=== PATIENT | female | born 1940 | race Caucasian/White ===

== ENCOUNTER 2016-11-15 19:49 | Inpatient (IN) | payer MEDICARE ==
[~2016-11-15] VITALS: Ht 157.4 cm; Wt 48.1 kg
--- NOTE | ~2016-11-15 | PR ---
[place], [place] PROGRESS NOTE [id number] UNIT #: [id number] ROOM: 311 DOCTOR: Brenden MONTANO,SELINA BIRTHDATE: [birth year] DOS: 11/23/2016 SUBJECTIVE: The patient seen and spoke with the staff. Per staff, the patient is doing good. No visual problems or issues, but still has periods of anxiety. The patient was pleasant, cooperative. She was sitting in the day area. She said that she was really feeling very anxious and feels that she will not feel safe going home like that. I spoke with her about BuSpar. She said that her grandson takes BuSpar and apparently that helps him and she is willing to try BuSpar. MENTAL STATUS EXAMINATION: The patient was pleasant and cooperative. Described her mood as "okay." Affect was anxious, shaky. Thought process goal directed. No flight of ideas or loosening of association. She denied auditory or visual hallucination. She had no delusions or paranoia noted. She denied suicidal ideation, intent or plan. She also denied homicidal ideation, intent or plan. Insight and judgment fair. ASSESSMENT: 1. 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 2. Generalized anxiety disorder. PLAN: 1. Continue current medication. 2. I will add BuSpar 5 mg twice a day. 3. Continue redirection. 4. Supportive care. 5. Discharge planning. SELINA MONTANO MD CM:PNGREGORIO [id number] Brenden MONTANO 11/24/16 1256 interface
--- NOTE | ~2016-11-15 | PR ---
[place], [place] PROGRESS NOTE NAME: CAMILLE RAMEY [facility] #: [id number] UNIT #: [id number] ROOM: 311 DOCTOR: Brenden MONTANO,SELINA BIRTHDATE: [birth year] DOS: 11/20/2016 SUBJECTIVE: The patient seen and I spoke with the staff. Per staff, the patient is doing better than before, still had some anxiety episodes, but doing better overall. Reportedly, she is also attending groups. The patient was pleasant, cooperative. She was actually in the dining area. She looks calm and cooperative. She says she is feeling better than before. She is hopeful that the medication will start its full effect soon. She still has some anxiety and feels like that she is going to , but she said that much better than before. She reports good sleep and appetite. MENTAL STATUS EXAMINATION: The patient was pleasant, cooperative. Described her mood as "good." Affect, mood congruent. Thought process goal directed. No flight of ideas or loosening of association. She denied auditory or visual hallucination. No delusion or paranoia noted. She denied any suicidal ideation, intent or plan. She also denied any homicidal ideation, intent or plan. ASSESSMENT: 1. Major depressive disorder, recurrent, severe without psychotic features. 2. Generalized anxiety disorder. PLAN: 1. Continue current medication and care. 2. Continue redirection. 3. Supportive care. SELINA MONTANO MD CM:HUNTER 16 5 Brenden MONTANO 11/21/16 0146 interface
--- NOTE | ~2016-11-15 | PR ---
[place], [place] PROGRESS NOTE NAME: CAMILLE RAMEY [facility] #: [id number] UNIT #: [id number] ROOM: 311 DOCTOR: Brenden MONTANO,SELINA BIRTHDATE: [birth year] DOS: 11/18/2016 The patient seen and spoke with the staff. Per staff, the patient is still very anxious, got Vistaril, taking her medications, very needy. The patient was pleasant, cooperative. She was in her room. She said that she is still feeling anxious, asked me when she can go home. She was asking also for Ativan. When I told her that she should not take any Ativan, she reluctantly agreed. MENTAL STATUS EXAMINATION: The patient was pleasant, cooperative. Described her mood as "anxious." Affect was mood congruent. Thought process goal directed. No flight of ideas, loosening of association. She denied auditory or visual hallucination. No delusion or paranoia. She denied suicidal ideation, intent or plan. She also denied homicidal ideation, intent or plan. ASSESSMENT: 1. Major depressive disorder, recurrent, severe without psychotic features. 2. Anxiety disorder, not otherwise specified. PLAN: 1. Continue current medication and care. 2. We will discontinue the Ativan. 3. Supportive care. SELINA MONTANO MD CM:PNTRANS [id number] Brenden MONTANO 11/19/16 0205 interface
--- NOTE | ~2016-11-15 | PR ---
[place], [place] PROGRESS NOTE [id number] UN[facility] #: [id number] ROOM: 311 DOCTOR: Brenden MONTANO,SELINA BIRTHDATE: [birth year] DOS: 11/19/2016 SUBJECTIVE: The patient seen and spoke with staff. Per staff, the patient is still very anxious. She slept all night and took her medication. No behavioral problems or issues. The patient was pleasant, cooperative. She was in the dining area, but the moment she saw me, she started shaking and started saying that she is feeling anxious and she needs more medication. It should be noted that when the patient was observed from a distance, she seems to be doing okay and not anxious at all. She reports good sleep. Denied any depressed mood, but complains about anxiety as mentioned earlier. MENTAL STATUS EXAMINATION: The patient was pleasant, cooperative. Described her mood as "anxious." Affect and mood congruent. Thought process goal directed. No flight of ideas, loosening of association. She denied auditory or visual hallucination. No delusion or paranoia noted. She denied suicidal ideation, intent or plan. She also denied homicidal ideation, intent or plan. ASSESSMENT: 1. 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 2. Generalized anxiety disorder. PLAN: 1. Continue current medication and care. 2. Continue redirection. 3. Supportive care. SELINA MONTANO MD CM:PNTRANS 54 Brenden MONTANO 11/20/1649 interface
--- NOTE | ~2016-11-15 | DS ---
[place], [place] DISCHARGE SUMMARY NAME: CAMILLE RAMEY [facility] #: [id number] UNIT #: [id number] ROOM: 311 DOCTOR: Brenden MONTANOSELINA BIRTHDATE: [birth year] DOS: 11/25/2016 PSYCHIATRIC DISCHARGE SUMMARY HISTORY OF PRESENT ILLNESS: This is a 75-year-old white female, who was sent here on an involuntary basis from [facility]. The patient has been going to the Emergency Room at an alarming rate over the last 6 months. She goes at least once a week all because of increased shortness of breath. During this period of time, there does seem to be a pattern of doctor shopping and/or indicates that she has been receiving prescriptions for Ativan, Xanax, and Valium as well as tramadol. The patient is increasingly depressed and despondent with poor sleep and appetite, energy, anhedonia, hopeless, helpless feelings, crying spells, and inability to cope. It is unclear if the anxiety that she is experiencing now is anxiety or if it is related to any withdrawal. She is admitted now to rule out organic factors to stabilize on medication and determine the least restrictive environment in which she can return to. PAST MEDICAL HISTORY: Remarkable for vitamin D deficiency, hypertension, GERD, hyperlipidemia. MENTAL STATUS: The patient is alert and oriented to person, place, not necessarily to time. Mood seems to be very depressed with anxious overtones. There is not necessarily the presence of hypomania or umu. There are no auditory or visual hallucinations, delusions or paranoia. Short-term memory has some mild gaps. DIAGNOSES: Major depression, recurrent, severe, and anxiety disorder, not otherwise specified. HOSPITAL COURSE: The patient got admitted for stabilization. She was admitted to the psychiatric unit. She was on benzodiazepine before she came to the hospital. The treatment team actually discontinued her benzodiazepines, started her on Cymbalta, which she tolerated well. The patient was still getting some p.r.n. Ativan, but gradually we stopped that. Her anxiety also started getting better. We started her on BuSpar 5 mg twice a day, which she tolerated well with significant improvement of her anxiety and mood. It should be noted that during her stay, she was seen by the treatment team regularly. She was also seen by the medical team during her stay. During the course of this hospitalization, the patient never tried to hurt herself or anyone else. She was pleasant, cooperative, engaging. She was compliant with her medication. The treatment team felt that the patient had maximum benefit out of the acute hospitalization and can be discharged back to home with her on 11/25/2016. MENTAL STATUS EXAMINATION: On discharge, alert and oriented x 4, pleasant, cooperative, described her mood as "good." Affect, mood congruent. Thought process goal directed. No flight of ideas, loosening of association. She denied auditory or visual hallucination. No delusions or paranoia noted. She denied suicidal ideation, intent or plan. She also denied homicidal ideation, [place], [place] DISCHARGE SUMMARY [id number] [facility] #: [id number] ROOM: [facility] DOCTOR: Brenden MONTANO,SELINA BIRTHDATE: [birth year] intent or plan. ASSESSMENT: 1. 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 2. Generalized anxiety disorder. DISCHARGE MEDICATIONS: Include: 1. Cymbalta 30 mg in the morning. 2. BuSpar 5 mg twice a day. INSTRUCTION AND FOLLOWUP APPOINTMENT: 1. The patient was advised to take her medication regularly. 2. The patient was advised not to use any drugs or alcohol. 3. I advised her not to use any benzodiazepine. 4. The patient was advised to go for followup regularly. SELINA MONTANO MD CM:LISA [id number] Brenden MONTANO 11/26/16 0150 interface
--- NOTE | ~2016-11-15 | PR ---
[place], [place] PROGRESS NOTE NAME: CAMILLE RAMEY [facility] #: [id number] UNIT #: [id number] ROOM: 311 DOCTOR: Brenden MONTANO,SELINA BIRTHDATE: [birth year] DOS: 11/17/2016 SUBJECTIVE: The patient seen and spoke with staff. Per staff, the patient was very tearful and anxious. She was asking for Ativan. She was given Vistaril, but then she ended up getting Ativan last night. She is medication compliant and did not have any behavioral problems or issues. The patient was pleasant, cooperative. She was sitting in the day area. She said that she has been feeling increasingly anxious and was asking for the Ativan, but she was easily redirectable. She reports good sleep and appetite. She also reports being depressed and down, but denied any hopelessness. When I told her that she should not take any benzodiazepine, she agreed with that plan. MENTAL STATUS EXAMINATION: The patient was pleasant, cooperative. She described her mood as "down." Affect was flat broad range. Thought process goal directed. No flight of ideas or loosening of association. She denied auditory or visual hallucination. No delusion or paranoia noted. She denied any suicidal ideation, intent or plan. She also denied any homicidal ideation, intent or plan. ASSESSMENT: 1. Major depressive disorder, recurrent, severe without psychotic feature. 2. Anxiety disorder, not otherwise specified. 3. Benzodiazepine dependence. PLAN: 1. Continue current medication. 2. Continue redirection. 3. Supportive care. SELINA MONTANO MD CM:PNTRANS 1912 0000 Brenden MONTANO 11/18/16 0001 interface
--- NOTE | ~2016-11-15 | PR ---
[place], [place] PROGRESS NOTE NAME: CAMILLE RAMEY [facility] #: [id number] UNIT #: [id number] ROOM: 311 DOCTOR: Brenden MONTANO,SELINA BIRTHDATE: [birth year] DOS: 11/22/2016 PSYCHIATRIC PROGRESS NOTE SUBJECTIVE: The patient seen and spoke with the staff. Per staff, the patient is doing well, less anxious than before. Medication compliant. No behavioral problems or issues. Reportedly, the patient seems to be more anxious during the daytime. The patient was pleasant and cooperative. She reports doing "better." She said that she feels anxious at the times, but when I told her that it will take ____, she has to give some time for the medication to give its full effect. She was not in any distress. She was in the day area and watching TV. She looks comfortable and bright. MENTAL STATUS EXAMINATION: The patient was pleasant, cooperative, described her mood as "good." Affect, mood congruent. Thought process goal directed. No flight of ideas, loosening of association. She denied auditory or visual hallucination. No delusion or paranoia noted. She denied suicidal ideation, intent or plan. She also denied homicidal ideation, intent or plan. ASSESSMENT: 1. Major depressive disorder, recurrent, severe without psychotic feature. 2. Generalized anxiety disorder. PLAN: 1. Continue current medication. 2. Continue redirection. 3. Encourage activity in groups. 4. Discharge planning. SELINA MONTANO MD CM:HUNTER 1042 Brenden MONTANO 11/22/16 1844 interface
--- NOTE | ~2016-11-15 | PR ---
[place], [place] PROGRESS NOTE [id number] #: [id number] ROOM: 311 DOCTOR: Brenden MONTANO,SELINA BIRTHDATE: [birth year] DOS: 11/21/2016 PSYCHIATRIC PROGRESS NOTE SUBJECTIVE: The patient seen and spoke with the staff. Per staff, the patient's anxiety is much less. She slept last night. No behavioral problems or issues. Did not require any p.r.n. medication. The patient was pleasant, cooperative. She looks much relaxed than the last couple of days. She was actually eating her breakfast. She reports doing well. She said that still she feels anxious at times, but not to the point that having a panic attack. She feels that the medication is helping her. MENTAL STATUS EXAMINATION: Pleasant, cooperative. Described her mood as "okay." Affect, mood congruent. Thought process goal directed. No flight of ideas, loosening of association. She denied auditory or visual hallucination. No delusion or paranoia noted. She denied suicidal ideation, intent or plan. She also denied homicidal ideation, intent or plan. ASSESSMENT: 1. Major depressive disorder, recurrent, without psychotic features. 2. Generalized anxiety disorder. PLAN: 1. Continue current medication and care. 2. Continue redirection. 3. Discharge planning. SELINA MONTANO MD CM:HUNTER [id number] Brenden MONTANO 11/21/16 1039 interface
--- NOTE | ~2016-11-15 | WRIGHTHP ---
[place], [place] PATIENT HISTORY AND PHYSICAL EXAM [id number] #: [id number] ROOM: 311 DOCTOR: TRINI OTERO MD BIRTHDATE: [birth year] DOS: 11/16/2016 INITIAL PSYCHIATRIC EVALUATION CHIEF COMPLAINT: "Oh I need something for anxiety. I can't breathe, help me, help me." HISTORY OF PRESENT ILLNESS: This is a 75-year-old white female, who was sent here on an involuntary basis from [facility]. The patient has been going to the Emergency Room at an alarming rate over the last 6 months. She goes at least once a week all because of increased shortness of breath. During this period of time, there does seem to be a pattern of doctor shopping and/or indicates that she has been receiving prescriptions for Ativan, Xanax, and Valium as well as tramadol. The patient is increasingly depressed and despondent with poor sleep and appetite, energy, anhedonia, hopeless, helpless feelings, crying spells, and inability to cope. It is unclear if the anxiety that she is experiencing now is anxiety or if it is related to any withdrawal. She is admitted now to rule out organic factors to stabilize on medication and determine the least restrictive environment in which she can return to. PAST MEDICAL HISTORY: Remarkable for vitamin D deficiency, hypertension, GERD, hyperlipidemia. MENTAL STATUS: The patient is alert and oriented to person, place, not necessarily to time. Mood seems to be very depressed with anxious overtones. There is not necessarily the presence of hypomania or umu. There are no auditory or visual hallucinations, delusions or paranoia. Short-term memory has some mild gaps. DIAGNOSES: Major depression, recurrent, severe, and anxiety disorder, not otherwise specified. PLAN: Her Effexor XR has been discontinued in lieu of Cymbalta 30 mg a day. I would plan to gradually titrate this up to a range between 60 and 120 mg a day, Vistaril 50 mg 3 times daily and p.r.n. have been ordered to relieve the anxiety. When to stay with a nonaddicting option have ordered, Ativan to be utilized only for symptoms suggestive of benzodiazepine withdrawal. Screening examinations revealed her to have a low vitamin D level, so we will start her on vitamin D 50,000 international units weekly. We will engage in individual and chilel milieu activity, returning to the least restrictive environment when stable. [place], [place] PATIENT HISTORY AND PHYSICAL EXAM NAME: CAMILLE RAMEY UNIT #: [id number] ROOM: [facility] DOCTOR: TRINI OTERO MD BIRTHDATE: [birth year] TRINI OTERO MD CM:HISPHYS:PATIENT HISTORY AND PHYSICAL EXAMINATION [phone] TRINI OTERO MD 11/16/16 08 interface
--- NOTE | ~2016-11-15 | PR ---
[place], [place] PROGRESS NOTE [id number] #: [id number] ROOM: 311 DOCTOR: Brenden MONTANO,SELINA BIRTHDATE: [birth year] DOS: 11/24/2016 SUBJECTIVE: The patient seen and spoke with the staff. Per staff, the patient still has some anxiety, but not as bad as before. She slept well last night, does not have any behavioral problems or issues. Medication compliant. The patient was pleasant and cooperative. She was in her room. She reports doing okay. She said that she still feels some anxiety, but not as bad as before. She denied any auditory or visual hallucination. No delusion or paranoia noted. She denied suicidal ideation, intent or plan. She also denied homicidal ideation, intent or plan. ASSESSMENT: 1. 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 2. Generalized anxiety disorder. PLAN: 1. Continue current medication and care. 2. Continue redirection. 3. Discharge planning. SELINA MONTANO MD CM:HUNTER [id number] Brenden MONTANO 11/24/16 1325 interface
[2016-11-15] MEDS ORDERED: XANAX1 MG PO (21:12)
[2016-11-15] MEDS ORDERED: LIPITOR40 MG PO (21:13)
[2016-11-15] MEDS ORDERED: BUMETANIDE1 MG PO (21:14)
[2016-11-15] MEDS ORDERED: RISPERDAL0.5 MG PO (21:23)
[2016-11-15] MEDS ORDERED: PEPCID20 MG PO (21:24)
[2016-11-15] MEDS ORDERED: APRESOLINE25 MG PO (21:26)
[2016-11-15] MEDS ORDERED: VISTARIL50 MG PO (21:28)
[2016-11-15] MEDS ORDERED: TRAZODONE50 MG PO (21:29)
[2016-11-15] MEDS ORDERED: VENLAFAXINE150 MG PO (21:30)
[2016-11-15] MEDS ORDERED: METOPROLOL25 MG PO (21:31)
[2016-11-15] MEDS ORDERED: REMERON15 M2 PO (21:32)
[2016-11-15 23:41] VITALS: BP 142/81
[2016-11-16 00:40] VITALS: BP 142/81
[2016-11-16 06:17] LABS: BASO % 1.1 % (0.0-1.0); EOS # 0.3 10*3/uL (0.0-0.4); EOS % 7.9 % (1.0-4.0); HEMATOCRIT 31.3 % (37.0-47.0); HEMOGLOBIN 10.3 g/dl (12.0-16.0); LYMPH # 0.8 10*3/uL (1.3-4.4); LYMPH % 21.9 % (27.0-41.0); MEAN CELL VOLUME 88.4 fl (81.0-99.0); MEAN CORPUSCULAR HGB 29.1 pg (27.0-31.0); MEAN CORPUSCULAR HGB CONC 32.9 g/dl (33.0-37.0); MEAN PLATELET VOLUME 11.2 fl (9.6-12.3); MONO # 0.5 10*3/uL (0.1-1.0); MONO % 13.7 % (3.0-9.0); NEUT % 55.1 % (47.0-73.0); PLATELET COUNT AUTOMATED 107 10*3/uL (130-400); RED BLOOD COUNT 3.54 10*6/uL (4.10-5.10); RED CELL DISTRI WIDTH 12.9 % (0-14.5); WHITE BLOOD COUNT 3.7 10*3/uL (4.8-10.8)
[2016-11-16 06:32] LABS: HEMOGLOBIN A1c 5.5 % (4.8-5.6)
[2016-11-16 06:41] LABS: ALBUMIN 3.1 gm/dl (3.1-4.5); BILIRUBIN, TOTAL 0.5 mg/dl (0.2-1.0); POTASSIUM 3.9 mmol/L (3.5-5.1); TOTAL PROTEIN 6.4 gm/dL (6.4-8.2)
[2016-11-16 06:48] LABS: THYROID STIM HORMONE (HS) 1.88 uIU/ml (0.358-4.75)
[2016-11-16 06:59] LABS: FOLIC ACID 20.86 ng/mL (>5.38); VITAMIN D, 25-HYDROXY 20.5 ng/mL (30-100)
[2016-11-16 08:13] VITALS: BP 154/88
[2016-11-16 17:57] LABS: BILIRUBIN NEGATIVE (NEGATIVE); BLOOD TRACE-LYSED (NEGATIVE); CLARITY SL CLOUDY (CLEAR); COLOR YELLOW (YELLOW); GLUCOSE NEGATIVE (NEGATIVE); KETONE NEGATIVE (NEGATIVE); LEUKO ESTERASE TRACE (NEGATIVE); NITRITE NEGATIVE (NEGATIVE); PROTEIN 2+ (NEGATIVE); SPECIFIC GRAVITY 1.015 (1.005-1.030); UROBILINOGEN 0.2 E.U./dl (0.2-1.0)
[2016-11-16 18:04] LABS: BACTERIA TRACE; EPITHELIAL CELLS 0-2; MUCOUS TRACE; URINE REFLEX COMMENT YES (NO)
[2016-11-16 20:00] VITALS: BP 180/72
[2016-11-17 08:03] VITALS: BP 146/86
[2016-11-17 20:12] VITALS: BP 156/76
[2016-11-18 08:00] VITALS: BP 144/90
[2016-11-18 20:00] VITALS: BP 156/65
[2016-11-19 08:02] VITALS: BP 152/86
[2016-11-19 20:07] VITALS: BP 153/57
[2016-11-20 07:08] LABS: BASO % 0.9 % (0.0-1.0); EOS # 0.1 10*3/uL (0.0-0.4); EOS % 3.3 % (1.0-4.0); HEMATOCRIT 30.6 % (37.0-47.0); HEMOGLOBIN 9.9 g/dl (12.0-16.0); LYMPH # 0.6 10*3/uL (1.3-4.4); LYMPH % 14.7 % (27.0-41.0); MEAN CELL VOLUME 89.2 fl (81.0-99.0); MEAN CORPUSCULAR HGB 28.9 pg (27.0-31.0); MEAN CORPUSCULAR HGB CONC 32.4 g/dl (33.0-37.0); MEAN PLATELET VOLUME 10.5 fl (9.6-12.3); MONO # 0.6 10*3/uL (0.1-1.0); MONO % 14.9 % (3.0-9.0); NEUT # 2.8 10*3/uL (2.3-7.9); NUCLEATED RED BLOOD CELL 0.5 % (0.0-0.0); PLATELET COUNT AUTOMATED 154 10*3/uL (130-400); RED BLOOD COUNT 3.43 10*6/uL (4.10-5.10); RED CELL DISTRI WIDTH 13.1 % (0-14.5); WHITE BLOOD COUNT 4.2 10*3/uL (4.8-10.8)
[2016-11-20 07:14] LABS: POTASSIUM 3.5 mmol/L (3.5-5.1)
[2016-11-20 07:49] VITALS: BP 154/82
[2016-11-20 20:00] VITALS: BP 155/65
[2016-11-21 08:21] VITALS: BP 156/63
[2016-11-21 20:04] VITALS: BP 146/56
[2016-11-22 08:37] VITALS: BP 147/72
[2016-11-22 20:19] VITALS: BP 148/62
[2016-11-23 10:14] VITALS: BP 127/62
[2016-11-23 20:00] VITALS: BP 137/81
[2016-11-24 08:03] VITALS: BP 154/73
[2016-11-24 19:51] VITALS: BP 152/58
[2016-11-25 08:00] VITALS: BP 152/66
[2016-11-25] MEDS ORDERED: ATORVASTATIN CA40 M1 PO (09:48)
[2016-11-25] MEDS ORDERED: FAMOTIDINE20 M1 PO (09:48)
[2016-11-25] MEDS ORDERED: BUMETANIDE1 MG PO (09:48)
[2016-11-25] MEDS ORDERED: LOPRESSOR25 MG PO (09:48)
[2016-11-25] MEDS ORDERED: Vitamin D PO (09:48)
[2016-11-25] MEDS ORDERED: APRESOLINE25 MG PO (09:48)
[2016-11-25] MEDS ORDERED: FEROSUL325 MG PO (09:48)
[2016-11-25] MEDS ORDERED: VISTARIL50 MG PO (12:28)
[2016-11-25] MEDS ORDERED: CYMBALTA30 MG PO (12:29)
[2016-11-25] MEDS ORDERED: BUSPAR5 MG PO (12:29)
== END 2016-11-25 13:45 | disposition home or self-care (01) | DRG 885 ==
LOC: 3N 19:49
PROVIDERS: Internal Medicine Hospice and Palliative Medicine; Nurse Practitioner Adult Health; Psychiatry & Neurology Psychiatry
DX: F33.2 Major depressive disorder, recurrent severe without psychotic features (principal); D64.9 Anemia, unspecified; I10 Essential (primary) hypertension; S00.83XA Contusion of other part of head, initial encounter; E55.9 Vitamin D deficiency, unspecified; F41.1 Generalized anxiety disorder; S60.222A Contusion of left hand, initial encounter; E78.5 Hyperlipidemia, unspecified; K21.9 Gastro-esophageal reflux disease without esophagitis; W18.30XA Fall on same level, unspecified, initial encounter; Y93.89 Activity, other specified; Z79.899 Other long term (current) drug therapy; Y92.89 Other specified places as the place of occurrence of the external cause; Y99.8 Other external cause status; Z88.8 Allergy status to other drugs, medicaments and biological substances